=== PATIENT | male | born 1960 | race Caucasian/White ===

== ENCOUNTER 2016-08-08 19:53 | Observation (INO) | payer OTHER ==
[~2016-08-08] VITALS: Ht 180.3 cm; Wt 122.1 kg
[2016-08-08] MEDS ORDERED: ASPIRIN 81 MG CHEW TAB ONE (20:10)
[2016-08-08] MEDS ORDERED: PANTOPRAZOLE 40 MG TAB PO ONE (23:02)
[2016-08-09] VITALS (8 sets, daily range): BP systolic 122–210; RESP 16–22; TEMP 97.5–98.8; Ht 180.3 cm; Wt 122.1 kg
[2016-08-09] MEDS ORDERED: SODIUM CHLORIDE 0.9% FLUSH BAG 500 ML IV PRN (00:35)
[2016-08-09] MEDS ORDERED: TRAMADOL 50 MG TAB PO PRN (00:35)
[2016-08-09] MEDS ORDERED: NITROGLYCERIN 50 MG/250 ML IV PRN (00:35)
[2016-08-09] MEDS ORDERED: SALINE FLUSH 10 ML FLUSH PRN (00:35)
[2016-08-09] MEDS ORDERED: MORPHINE 2 MG/ML SYR IV PRN (00:35)
[2016-08-09] MEDS ORDERED: ONDANSETRON 4 MG VIAL IV PRN (00:35)
[2016-08-09] MEDS ORDERED: TEMAZEPAM 15 MG CAP PO PRN (00:35)
[2016-08-09] MEDS ORDERED: ACETAMINOPHEN 325 MG TAB PO PRN (00:35)
[2016-08-09] MEDS ORDERED: DOCUSATE SOD 100 MG CAP PO PRN (00:35)
[2016-08-09] MEDS ORDERED: LORAZEPAM 0.5 MG TAB PO PRN (00:35)
[2016-08-09] MEDS: PANTOPRAZOLE 40 MG TAB PO SCH (06:17)
[2016-08-09] MEDS: NITROGLYCERIN SL 0.4 MG TAB SL PRN ×2 (07:12→09:09)
[2016-08-09] MEDS ORDERED: MISSING DOSE XX ONE (08:50)
[2016-08-09] MEDS: Carvedilol 6.25 MG TAB PO SCH ×2 (09:10→20:49)
[2016-08-09] MEDS: ENOXAPARIN 40 MG/0.4 ML SYR SUBQ SCH (09:10)
[2016-08-09] MEDS: SALINE FLUSH 10 ML FLUSH SCH ×2 (09:10→20:49)
[2016-08-09] MEDS: ASPIRIN EC 81 MG TAB PO SCH (09:10)
[2016-08-09] MEDS ORDERED: Losartan 50 MG TAB PO SCH (10:16)
[2016-08-09] MEDS: amLODIPine 5 MG TAB PO SCH (12:18)
[2016-08-09] MEDS: HCTZ 12.5 MG CAP PO SCH (12:18)
[2016-08-09] MEDS ORDERED: Atorvastatin 40 MG TAB PO STA (13:23)
[2016-08-09] MEDS: KCL CR 10 MEQ TAB PO SCH (14:03)
[2016-08-09] MEDS: OXYCODONE/APAP 7.5/325 TAB PO PRN ×2 (14:11→20:50)
[2016-08-10] VITALS (10 sets, daily range): BP systolic 160–183; RESP 18–20; TEMP 97.6–98.2
[2016-08-10] MEDS: PANTOPRAZOLE 40 MG TAB PO SCH (07:01)
[2016-08-10] MEDS: OXYCODONE/APAP 7.5/325 TAB PO PRN ×4 (07:02→18:59)
[2016-08-10] MEDS ORDERED: Losartan 50 MG TAB PO SCH (09:00)
[2016-08-10] MEDS: ASPIRIN EC 81 MG TAB PO SCH (09:19)
[2016-08-10] MEDS: HCTZ 12.5 MG CAP PO SCH (09:19)
[2016-08-10] MEDS: KCL CR 10 MEQ TAB PO SCH (09:20)
[2016-08-10] MEDS: amLODIPine 5 MG TAB PO SCH (09:20)
[2016-08-10] MEDS: ENOXAPARIN 40 MG/0.4 ML SYR SUBQ SCH (09:21)
[2016-08-10] MEDS: SALINE FLUSH 10 ML FLUSH SCH (09:22)
[2016-08-10] MEDS ORDERED: MISSING DOSE XX ONE (09:35)
[2016-08-10] MEDS: Carvedilol 6.25 MG TAB PO SCH (10:33)
[2016-08-10] MEDS ORDERED: amLODIPine 5 MG TAB PO SCH (16:20)
[2016-08-10] MEDS ORDERED: CARBAMAZEPINE XR 100 MG TAB PO SCH (20:00)
== END 2016-08-10 16:16 | disposition home or self-care (01) ==
LOC: ENRESERV → ENRESERVDT → ENRESERVTM → ER 19:53 → ENPENDDIS 22:46 → EMR 22:46 → 4THE 08-09 00:13
PROVIDERS: ADMIT Specialist; ATTEND Specialist
CPT/HCPCS: 71010; 93005; 94799